=== PATIENT | female | born 1990 | race Caucasian/White ===

== ENCOUNTER → 2022-09-27 | Outpatient (CLI) | payer OTHER ==
[2022-09-28 01:16] LABS: Basophils # (A) 0.07 X 10*3/uL (0.00-0.10); Basophils % (A) 0.6 %; Eosinophils # (A) 0.23 X 10*3/uL (0.04-0.35); Eosinophils % (A) 2.1 %; HCT 40.2 % (37.2-46.3); HGB 13.1 g/dL (12.0-15.0); Immature Grans, Automated 0.5 %; MCH 30.3 pg (27.0-32.0); MCHC 32.6 g/dL (32.0-37.0); MCV 92.8 fL (80.0-97.0); Monocytes # (A) 0.85 X 10*3/uL (0.20-1.00); Monocytes % (A) 7.7 %; NRBC Per 100 WBC 0 /100 WBCS (0.0-0.0); Neutrophils # (A) 7.61 X 10*3/uL (1.80-7.70); Neutrophils % (A) 69.1 %; Platelet Count 246 X 10*3/uL (140-440); RBC 4.33 X 10*6/uL (4.10-5.20); RDW 12.4 % (11.5-14.5); WBC 11.01 X 10*3/uL (4.50-10.00)
[2022-09-28 03:47] LABS: Hepatitis B Surface Antigen Nonreactive (Nonreactive)
[2022-09-28 04:08] LABS: ALT 17 U/L (8-44); AST 15 U/L (13-35); African American GFR (CKD) 140.9 (60.0-200.0); Albumin 4.4 g/dL (3.8-4.9); Albumin/Globulin Ratio 1.64 (1.60-3.17); Alkaline Phosphatase 76 U/L (41-126); BUN/Creat Ratio 11.05 Ratio (12.00-20.00); Blood Urea Nitrogen 6.6 mg/dL (9.0-27.0); Calcium 9.7 mg/dL (8.7-10.3); Carbon Dioxide 21.1 mmol/L (20.0-27.5); Chloride 104 mmol/L (96-109); Globulin 2.7 g/dL (1.6-3.3); Glucose 81 mg/dL (70-110); Non-African American GFR(CKD) 121.6 (60.0-200.0); Potassium 4.2 mmol/L (3.5-5.5); Sodium 138 mmol/L (135-145); Total Bilirubin <0.15 mg/dL (0.30-1.20)
[2022-09-28 04:48] LABS: HIV 2 AB Non-Reactive (Non-Reactive); HIV AB P24 Non-Reactive (Non-Reactive); HIV P24 AG Non-Reactive (Non-Reactive)
== END | disposition home or self-care (01) ==
LOC: LABWHC1 11:58
PROVIDERS: ATTEND Family Medicine
DX: Z34.90 Encounter for supervision of normal pregnancy, unspecified, unspecified trimester (principal); Z3A.00 Weeks of gestation of pregnancy not specified; Z86.32 Personal history of gestational diabetes
CPT/HCPCS: 36415; 80053; 82306; 83036; 85025; 86762; 86900; 86901; 87340; 87390; 87491; 87591

== ENCOUNTER → 2022-10-10 | Outpatient (CLI) | payer OTHER ==
--- NOTE | 2022-10-11 09:45 | US ---
EXAMINATION TYPE: Transabdominal DATE OF EXAM: 10/10/2022 3:38 PM COMPARISON: NONE CLINICAL INDICATION: Female, 32 years old with history of Z36.89 ENCOUNTER FOR OTHER SPECIFIED SCR; EXAM PERFORMED: Transabdominal (TA) EXAM MEASUREMENTS: GESTATIONAL AGE / DATING Physician Established: (8 weeks/1 days) EDC: 05/21/2023 Dates by LMP: Unknown Dates by First Scan: No previous this is first scan Dates by Current Scan for: ( 7 weeks/5 days) EDC: 05/24/2023 MATERNAL ANATOMY Uterus: 15.0 x 7.4 x 8.3cm, fundal hypoechoic area measuring 5.3 x 3.7 x 4.4cm - possible fibroid Right Ovary: 3.5 x 1.9 x 2.9cm Left Ovary: 2.6 x 1.1 x 2.7cm Post CDS / Adnexa: wnl Presence of free fluid: no Presence of corpus luteal cyst: not seen Presence of subchorionic bleed: 1.2 x 1.3 x 2.5cm hypoechoic area superior to gestational sac GESTATION / SURVEY CRL: 1.4cm (7 weeks/5 days) Yolk Sac (normal less than 6mm): 5.0mm Heart Rate: 169 bpm Rhythm: Normal IUP: Viable IUP Urinary bladder is sonolucent. IMPRESSION: 1. Single intrauterine gestation estimated at 7 weeks 5 days gestation based on crown-rump length. Cardiac activity measures 169 bpm. 2. Anterior fundal uterine fibroid measuring approximately 4 x 4 by 5 cm. MTDD
== END | disposition home or self-care (01) ==
LOC: RADUSWWP 15:14
PROVIDERS: ATTEND Obstetrics & Gynecology
DX: O34.11 Maternal care for benign tumor of corpus uteri, first trimester (principal); Z36.89 Encounter for other specified antenatal screening; Z3A.08 8 weeks gestation of pregnancy
CPT/HCPCS: 76801

== ENCOUNTER 2022-10-14 12:18 | Emergency (ER) | payer OTHER ==
[2022-10-14 12:22] VITALS: RESP 18
[2022-10-14 13:06] LABS: Appearance,Urine Cloudy (Clear); Bacteria,Urine Occasional /hpf; Bilirubin,Urine Negative (Negative); Blood,Urine Trace (Negative); Color,Urine Yellow; Glucose,Urine (UA) Negative (Negative); Ketones,Urine 1+ (Negative); Leukocyte Esterase,Urine Negative (Negative); Mucus,Urine Occasional /hpf; Nitrite,Urine Negative (Negative); Protein,Urine Trace (Negative); RBC,Urine 22 /hpf (0-5); Specific Gravity,Urine 1.022 (1.001-1.035); Squamous Epithelial Cell,Urine 8 /hpf (0-4); Urobilinogen,Urine <2.0 mg/dL (<2.0); WBC,Urine 2 /hpf (0-5)
--- NOTE | 2022-10-14 13:06 | ED ---
Abdominal Pain HPI - General Chief Complaint: Abdominal Pain Stated Complaint: abd pain - 8 weeks Time Seen by Provider: 10/14/22 12:24 Source: patient, RN notes reviewed Mode of arrival: ambulatory Limitations: no limitations - History of Present Illness Initial Comments: This is a 32-year-old female presents emergency Department with chief complaint of abdominal, low back pain. Patient states she is A0 currently [address] Gurrola. Patient states she was having low back achiness and had some mild left lower abdominal pain, pelvic pain. Patient here for checkup she is concerned that she has a known subchronic hematoma. Patient denies fever chills no vaginal bleeding patient and no other associated symptoms or dysuria - Related Data Previous Rx's Medication Instructions Recorded Acetaminophen-Codeine 300-30mg 1 each PO Q6H PRN #21 tablet 10/13/13 [Tylenol #3] Dicyclomine [Bentyl] 20 mg PO QID #14 tablet 10/13/13 Metoclopramide HCl [Reglan] 10 mg PO Q6HR PRN #14 tablet 10/13/13 Allergies Allergy/AdvReac Type Severity Reaction Status Date / Time No Known Allergies Allergy Verified 10/14/22 12:22 Review of Systems ROS Statement: Those systems with pertinent positive or pertinent negative responses have been documented in the HPI. ROS Other: All systems not noted in ROS Statement are negative. Past Medical History Past Medical History: No Reported History History of Any Multi-Drug Resistant Organisms: None Reported Past Surgical History: Ear Surgery Past Psychological History: No Psychological Hx Reported Smoking Status: Never smoker Past Alcohol Use History: None Reported Past Drug Use History: None Reported General Exam Limitations: no limitations General appearance: alert, in no apparent distress Head exam: Present: atraumatic, normocephalic, normal inspection Eye exam: Present: normal appearance, PERRL, EOMI. Absent: scleral icterus, conjunctival injection, periorbital swelling Neck exam: Present: normal inspection, full ROM. Absent: tenderness, meningismus, lymphadenopathy Respiratory exam: Present: normal lung sounds bilaterally. Absent: respiratory distress, wheezes, rales, rhonchi, stridor Cardiovascular Exam: Present: regular rate, normal rhythm, normal heart sounds. Absent: systolic murmur, diastolic murmur, rubs, gallop, clicks GI/Abdominal exam: Present: soft, normal bowel sounds. Absent: distended, tenderness, guarding, rebound, rigid Back exam: Absent: CVA tenderness (R), CVA tenderness (L) Neurological exam: Present: alert Skin exam: Present: warm, dry, intact, normal color. Absent: rash Course Vital Signs 10/14/22 10/14/22 12:19 14:14 Temperature 98.2 F 98.4 F Pulse Rate 91 81 Respiratory 18 18 Rate Blood Pressure 139/81 124/73 O2 Sat by Pulse 99 99 Oximetry Medical Decision Making - Medical Decision Making Was pt. sent in by a medical professional or institution (, EMERITA, GAS REGULATOR REPAIRER, urgent care, hospital, or longterm...) When possible be specific @ -No Did you speak to anyone other than the patient for history (EMS, parent, family, police, friend...)? What history was obtained from this source @ -No Did you review nursing and triage notes (agree or disagree)? Why? @ -I reviewed and agree with nursing and triage notes Were old charts reviewed (outside hosp., previous admission, EMS record, old EKG, old radiological studies, urgent care reports/EKG's, longterm records)? Report findings @ -No old charts were reviewed Differential Diagnosis (chest pain, altered mental status, abdominal pain women, abdominal pain men, vaginal bleeding, weakness, fever, dyspnea, syncope, headache, dizziness, GI bleed, back pain, seizure, CVA, palpatations, mental health, musculoskeletal)? @ -Miscarriage, abdominal pain and , TIA, EKG interpreted by me (3pts min.). @ -None] X-rays interpreted by me (1pt min.). @ -None done CT interpreted by me (1pt min.). @ -None done U/S interpreted by me (1pt. min.). @ -Ultrasound shows stable subchorionic hemorrhage, single viable IUP, uterine fibroid noted What testing was considered but not performed or refused? (CT, X-rays, U/S, labs)? Why? @ -None What meds were considered but not given or refused? Why? @ -None Did you discuss the management of the patient with other professionals (professionals i.e. EMERITA Sharma, GAS REGULATOR REPAIRER, lab, RT, psych nurse, protective services social worker, insurance law specialist, teacher, morale officer, case packer and sealer)? Give summary @ -No Was smoking cessation discussed for >3mins.? @ -No Was critical care preformed (if so, how long)? @ -No Were there social determinants of health that impacted care today? How? (Homelessness, low income, unemployed, alcoholism, drug addiction, transportation, low edu. Level, literacy, decrease access to med. care, prison, rehab)? @ -No Was there de-escalation of care discussed even if they declined (Discuss DNR or withdrawal of care, Hospice)? DNR status @ -No What co-morbidities impacted this encounter? (DM, HTN, Smoking, COPD, CAD, Cancer, CVA, ARF, Chemo, Hep., AIDS, mental health diagnosis, sleep apnea, morbid obesity)? @ -None Was patient admitted / discharged? Hospital course, mention meds given and route, prescriptions, significant lab abnormalities, going to OR and other pertinent info. @ -Discharged patient has single viable IUP with no comp eating fractures on ultrasound. Patient did have noted hematuria and asymptomatic bacteriuria in she states she just finished a course of antibiotics and yeast infection treatment from [facility] she states she will recheck with [facility] as far as treatment Undiagnosed new problem with uncertain prognosis? @ -No Drug Therapy requiring intensive monitoring for toxicity (Heparin, Nitro, Insulin, Cardizem)? @ -No Were any procedures done? @ -No Diagnosis/symptom? @ -Abdominal pain in Acute, or Chronic, or Acute on Chronic? @ -Acute Uncomplicated (without systemic symptoms) or Complicated (systemic symptoms)? @ -Uncomplicated Side effects of treatment? @ -No Exacerbation, Progression, or Severe Exacerbation? @ -No Poses a threat to life or bodily function? How? (Chest pain, [place], [place], pneumonia, PE, COPD, DKA, ARF, appy, cholecystitis, CVA, Diverticulitis, Homicidal, Suicidal, threat to staff... and all critical care pts) @ -No - Lab Data Lab Results 10/14/22 Range/Units 12:35 Urine Color Yellow Urine Appearance Cloudy H (Clear) Urine pH 7.0 (5.0-8.0) Ur Specific [place] 1.022 (1.001-1.035) Urine Protein Trace H (Negative) Urine Glucose (UA) Negative (Negative) Urine Ketones 1+ H (Negative) Urine Blood Trace H (Negative) Urine Nitrite Negative (Negative) Urine Bilirubin Negative (Negative) Urine Urobilinogen <2.0 (<2.0) mg/dL Ur Leukocyte Esterase Negative (Negative) Urine RBC 22 H (0-5) /hpf Urine WBC 2 (0-5) /hpf Ur Squamous Epith Cells 8 H (0-4) /hpf Urine Bacteria Occasional H (None) /hpf Urine Mucus Occasional H (None) /hpf Disposition Clinical Impression: Abdominal pain in Disposition: HOME SELF-CARE Condition: Stable Instructions (If sedation given, give patient instructions): Abdominal Pain in (ED) Additional Instructions: Please return to the Emergency Department if symptoms worsen or any other concerns. Is patient prescribed a controlled substance at d/c from ED?: No Referrals: Vijay Barker MD [Primary Care Provider] - 1-2 days Time of Disposition: 13:54
--- NOTE | 2022-10-14 13:35 | US ---
EXAMINATION TYPE: Transabdominal DATE OF EXAM: 10/14/2022 1:23 PM COMPARISON: 10/20/2022 CLINICAL INDICATION: Female, 32 years old with history of pain; back pain, pelvic pain EXAM PERFORMED: Transabdominal (TA) EXAM MEASUREMENTS: GESTATIONAL AGE / DATING Physician Established: Not yet established Dates by LMP: (8 weeks/3 days) EDC: 05/23/23 Dates by First Scan: (8 weeks/2 days) EDC: 05/24/23 Dates by Current Scan for: (8 weeks/5 days) EDC: 05/21/23 MATERNAL ANATOMY Uterus: 14.0 x 6.5 x 9.8cm. fundal hypoechoic area = 4.6 x 4.5 x 4.2cm as on prior exam Right Ovary: 3.4 x 3.5 x 2.4cm Left Ovary: 2.7 x 1.5 x 1.6cm Post CDS / Adnexa: wnl Presence of free fluid: no Presence of corpus luteal cyst: not seen Presence of subchorionic bleed: yes, hypoechoic area = 1.8 x 1.5 x 2.2cm adjacent to gestational sac as on prior exam GESTATION / SURVEY CRL: 2.0cm (8 weeks/5 days) Yolk Sac (normal less than 6mm): 0.4cm Heart Rate: 165 bpm Rhythm: Normal IUP: Viable IUP Date of LMP: 08/16/22 Beta HcG (if available): Not available at this time IMPRESSION: 1. Single intrauterine gestation estimated at 8 weeks 5 days gestation based on crown-rump length. Ca rdiac activity measures 165 bpm. 2. Subchorionic hemorrhage. This is stable from comparison. 3. 4 cm anterior fundal fibroid.
[2022-10-14 14:15] VITALS: BP 124/73; PULSE 81; TEMP 98.4
== END 2022-10-14 14:15 | disposition home or self-care (01) ==
LOC: EC 12:18
DX: O26.891 Other specified pregnancy related conditions, first trimester (principal); R10.9 Unspecified abdominal pain; O20.8 Other hemorrhage in early pregnancy; Z3A.08 8 weeks gestation of pregnancy
CPT/HCPCS: 76801; 81001; 99284

== ENCOUNTER 2022-12-31 16:47 | Outpatient (CLI) | payer OTHER ==
[2022-12-31 18:16] LABS: Appearance,Urine Clear (Clear); Color,Urine Yellow; Glucose,Urine (UA) Negative (Negative); PH, Urine 6.5 (5.0-8.0); Protein,Urine 1+ (Negative); Specific Gravity,Urine >1.030 (1.001-1.035)
[2022-12-31 18:17] LABS: Bacteria,Urine Few /hpf; Bilirubin,Urine Negative (Negative); Blood,Urine Large (Negative); Ketones,Urine 3+ (Negative); Leukocyte Esterase,Urine Negative (Negative); Nitrite,Urine Negative (Negative); RBC,Urine 20 /hpf (0-5); Squamous Epithelial Cell,Urine 10 /hpf (0-4); Urobilinogen,Urine <2.0 mg/dL (<2.0); WBC,Urine 5 /hpf (0-5)
[2022-12-31 18:55] VITALS: BP 129/76; PULSE 105; RESP 16; TEMP 97.3
--- NOTE | 2023-01-01 07:13 | P.MSEPDOC ---
Presenting Problems - Arrival Data Date of Arrival on Unit: 12/31/22 Time of Arrival on Unit: 16:47 Mode of Transport: EMS - Complaint OB-Reason for Admission/Chief Complaint: Other Comment: Left sided abdominal pain, confirmed kidney stone 2 days ago Medical History - Information : 2 Para: 1 Term: 1 : 0 Abortions: Spontaneous or Elective: 0 Number of Living Children: 1 - Gestational Age Gestational Age by CARLOS (wks/days): 19 Weeks and 6 Days Review of Systems - Review of Systems Constitutional: No problems Breast: No problems ENT: No problems Cardiovascular: No problems Respiratory: No problems Gastrointestinal: No problems Genitourinary: No problems Musculoskeletal: No problems Neurological: No problems Skin: No problems Vital Signs - Temperature Temperature: 97.3 F Temperature Source: Temporal Artery Scan - Pulse Pulse Oximetery Pulse Rate: 105 Pulse Assessment Method: Pulse Oximetry - Respirations Respiratory Rate: 16 Oxygen Delivery Method: Room Air O2 Sat by Pulse Oximetry: 96 - Blood Pressure Right Arm Blood Pressure: 129/76 Blood Pressure Mean: 93 Blood Pressure Source: Automatic Cuff Medical Screen Scoring - Assessment - Baby A Baseline FHR: 145 Physician Notification - Physician Notified Physician Notified Date: 12/31/22 Physician Notified Time: 17:11 Physician: Nicol Rodney New Order Received: Yes - Notification Comment Comment: Dr. Rodney called in [facility] [place]. Report given on maternal complaints of abdominal. pain and that she was seen 2 days ago at [facility] and diagnosed with a kidney stone. Pt. is talking easily with RN and does not appear to be very uncomfortable, pt has norco at. home and has not been taking it. FHR in the 140s, abdomen soft to palpation and. nontender. Orders to send a UA and can discharge pt home with instructions to increase. fluids & take norco/tylenol PRN Maternal Triage Index - Maternal Triage Index Presenting for scheduled procedure w/no complaint: No - Stat/Priority 1 Stat Priority 1: No - Urgent/Priority 2 Urgent Priority 2: Yes Provider Notified: Nicol Rodney Provider Notified Time: 17:11 Criteria Met for Priority 2: 19 6/7wks, left abdominal pain rating it 8/10 Disposition - Disposition OB Disposition: Discharge to home Discharge Date: 07/30/23 Discharge Time: 18:30 I agree with the RN Medical Screening Exam: Yes Case reviewed; plan agreed upon as documented in EMR&OBIX.: Yes Diagnosis: CALCULUS OF KIDNEY
== END 2022-12-31 18:30 | disposition home or self-care (01) ==
LOC: FBPOP 16:47
PROVIDERS: ATTEND Obstetrics & Gynecology
DX: O26.832 Pregnancy related renal disease, second trimester (principal); N20.0 Calculus of kidney; Z3A.19 19 weeks gestation of pregnancy
CPT/HCPCS: 81001; G0463; 99213

== ENCOUNTER → 2023-01-01 | Outpatient (CLI) | payer OTHER ==
--- NOTE | 2023-01-01 13:15 | US ---
EXAMINATION TYPE: US kidneys/renal and bladder DATE OF EXAM: 01/01/2023 COMPARISON: NONE CLINICAL INDICATION: Female, 32 years old with history of N20.9 URINARY CALCULI; Hx of kidney stones EXAM MEASUREMENTS: Right Kidney: 10.6 x 4.3 x 4.2 cm Left Kidney: 11.6 x 6.3 x 5.4 cm Right Kidney: No hydronephrosis or masses seen Left Kidney: Echogenic area seen lower pole, 6 mm hyperechoic focus within the left kidney. Bladder: anechoic Bilateral Jets seen: No IMPRESSION: 1. No evidence for hydronephrosis. 2. Left renal nonobstructing calculus measuring up to 6 mm.
== END | disposition home or self-care (01) ==
LOC: RADUSWWP 12:02
PROVIDERS: ATTEND Family Medicine
DX: N20.9 Urinary calculus, unspecified (principal)
CPT/HCPCS: 76770

== ENCOUNTER 2023-03-13 21:49 | Outpatient (CLI) | payer OTHER ==
[2023-03-13 22:49] VITALS: BP 129/76; PULSE 103; RESP 18; TEMP 97.9
--- NOTE | 2023-03-14 06:48 | P.MSEPDOC ---
Presenting Problems - Arrival Data Date of Arrival on Unit: 03/13/23 Time of Arrival on Unit: 21:49 Mode of Transport: Ambulatory - Complaint OB-Reason for Admission/Chief Complaint: Rule Out SROM Comment: Pt 30 weeks and 1 day. Pt presents to triage with c/o gush of fluid x1 at 1500 today. Not leaking fluid since. Pt admits to intercourse in last 24 hours. Pt denies pain, no cx per toco or palpation. Cervical exam closed/thick/high. Medical History - Information : 2 Para: 1 Term: 1 : 0 Abortions: Spontaneous or Elective: 0 Number of Living Children: 1 - Gestational Age Gestational Age by CARLOS (wks/days): 30 Weeks and 1 Days Review of Systems - Review of Systems Constitutional: No problems Breast: No problems ENT: No problems Cardiovascular: No problems Respiratory: No problems Gastrointestinal: No problems Genitourinary: No problems Musculoskeletal: No problems Neurological: No problems Skin: No problems Vital Signs - Temperature Temperature: 97.9 F Temperature Source: Oral - Pulse Pulse Oximetery Pulse Rate: 103 Pulse Assessment Method: Pulse Oximetry - Respirations Respiratory Rate: 18 Oxygen Delivery Method: Room Air O2 Sat by Pulse Oximetry: 97 - Blood Pressure Right Arm Blood Pressure: 129/76 Blood Pressure Mean: 93 Blood Pressure Source: Automatic Cuff Medical Screen Scoring - Assessment - Baby A Baseline FHR: 155 Heart Rate - NICHD Category: Category I (Normal) NST: Reactive Physician Notification - Physician Notified Physician Notified Date: 03/13/23 Physician Notified Time: 22:19 Physician: Tate Mendez - Notification Comment Comment: Spoke with Dr. Mendez, Pt 30 weeks and 1 day. Pt presents to triage with c/o gush of fluid x1 at 1500 today. Not leaking fluid since. Pt admits to intercourse in last 24 hours. Pt denies pain, no cx per toco or palpation. Cervical exam closed/thick/high. Orders recieved to d/c home Maternal Triage Index - Maternal Triage Index Presenting for scheduled procedure w/no complaint: No - Stat/Priority 1 Stat Priority 1: No - Urgent/Priority 2 Urgent Priority 2: No - Prompt/Priority 3 Prompt Priority 3: Yes Criteria Met for Priority 3: Spoke with Dr. Mendez, Pt 30 weeks and 1 day. Pt presents to triage with c/o gush of fluid x1 at 1500 today. Not leaking fluid since. Pt admits to intercourse in last 24 hours. Pt denies pain, no cx per toco or palpation. Cervical exam closed/thick/high. Orders recieved to d/c home Disposition - Disposition OB Disposition: Triage, Discharge to home Discharge Date: 03/13/23 Discharge Time: 22:33 I agree with the RN Medical Screening Exam: Yes Case reviewed; plan agreed upon as documented in EMR&OBIX.: Yes Diagnosis: FALSE LABOR BEFORE 37 COMPLETED WEEKS OF GEST, THIRD TRI
== END 2023-03-13 22:33 | disposition home or self-care (01) ==
LOC: FBPOP 21:49
PROVIDERS: ATTEND Obstetrics & Gynecology
DX: O47.03 False labor before 37 completed weeks of gestation, third trimester (principal); Z3A.30 30 weeks gestation of pregnancy
CPT/HCPCS: 59025; G0463; 99213

== ENCOUNTER 2023-05-05 21:48 | Observation (INO) | payer OTHER ==
[2023-05-05 23:11] LABS: Amorphous Sediment,Urine Moderate /hpf; Bacteria,Urine Occasional /hpf; Granular Casts,Urine 7 /lpf (0); Hyaline Casts,Urine 14 /lpf (0-2); Mucus,Urine Rare /hpf; RBC,Urine 8 /hpf (0-5); Squamous Epithelial Cell,Urine 56 /hpf (0-4); WBC,Urine 30 /hpf (0-5)
[2023-05-05 23:12] LABS: Color,Urine Colorless
[2023-05-05 23:13] LABS: Appearance,Urine Cloudy (Clear)
[2023-05-05 23:14] LABS: Bilirubin,Urine Negative (Negative); Blood,Urine Small (Negative); Glucose,Urine (UA) Negative (Negative); Ketones,Urine Negative (Negative); Leukocyte Esterase,Urine Large (Negative); Nitrite,Urine Negative (Negative); Protein,Urine Trace (Negative); Specific Gravity,Urine 1.015 (1.001-1.035); Urobilinogen,Urine 0.2 mg/dL (<2.0)
[2023-05-05] MEDS ORDERED: ACETAMINOPHEN TAB 500 MG TAB PO PRN (23:26)
[2023-05-05] MEDS ORDERED: ONDANSETRON 4 MG/2 ML VIAL IVP PRN (23:27)
[2023-05-05] MEDS: NALBUPHINE 10 MG/ML (10 ML MDV) IV PRN (23:57)
[2023-05-06 01:01] VITALS: RESP 16
[2023-05-06] MEDS: NALBUPHINE 10 MG/ML (10 ML MDV) IV PRN (04:14)
[2023-05-06 08:18] LABS: Glucose,Whole Blood 87 mg/dL (70-110)
[2023-05-06] MEDS: LACTATED RINGERS 1,000 ML IV SCH ×3 (08:52→13:05)
[2023-05-06 09:03] VITALS: BP 128/77; PULSE 82; TEMP 97
--- NOTE | 2023-05-06 11:50 | P.HPOB ---
History of Present Illness H&P Date: 05/06/23 Chief Complaint: Severe left flank and left lower quadrant abdominal pain This is a 32-year-old female 2 para 1 with an estimated date of confinement of 05/21/2023, estimated gestational age of 37-5/7 weeks, who presented with complaints of severe left flank and left lower quadrant abdominal pain. At first she thought it was that she hadn't had a bowel movement in a couple days and therefore took a fleets enema. She did not get any result from this and her pain persisted. She did have a history of a kidney stone at 19 weeks with similar symptoms of pain. She never did pass that stone. Urinalysis appeared contaminated. She is admitted for possible kidney stone and IV hydration and pain control. She does see Dr. Gurrola for care and is gestational diabetic on insulin at nighttime. Sugars overall had been fairly well-controlled. She also is complaining of upper respiratory nasal congestion that is starting to improve now. She has been taking Benadryl for this. Obstetrical history: . History of 1 vaginal delivery at term. Review of Systems Constitutional: Denies chills, Denies fever Ears, nose, mouth and throat: Reports nasal congestion, Reports nasal discharge, Reports sinus pressure Cardiovascular: Denies chest pain, Denies shortness of breath Respiratory: Reports congestion, Reports cough with sputum (Clear sputum) Gastrointestinal: Reports abdominal pain (Left lower quadrant), Reports constipation, Denies nausea, Denies vomiting Genitourinary: Reports pelvic pain (Left lower quadrant), Reports Musculoskeletal: Reports low back pain (Left) Integumentary: Denies pruritus, Denies rash Neurological: Denies numbness, Denies weakness Psychiatric: Denies anxiety, Denies depression Past Medical History Additional Past Medical History / Comment(s): Gestational diabetes on insulin, history of migraines History of Any Multi-Drug Resistant Organisms: None Reported Past Surgical History: Ear Surgery Past Psychological History: No Psychological Hx Reported Smoking Status: Never smoker Past Alcohol Use History: None Reported Past Drug Use History: None Reported - Past Family History Father Family Medical History: No Reported History Medications and Allergies Home Medications Medication Instructions Recorded Confirmed Type Vit No.179/Iron/Folic 1 each PO DAILY 12/31/22 05/05/23 History [ Tablet] Insulin Aspart [NovoLOG Flexpen] 7 - 9 units SQ DAILY 05/05/23 05/05/23 History Allergies Allergy/AdvReac Type Severity Reaction Status Date / Time No Known Allergies Allergy Verified 03/13/23 21:57 Exam Osteopathic Statement: *. No significant issues noted on an osteopathic structural exam other than those noted in the History and Physical/Consult. Vital Signs Temp Pulse Resp BP Pulse Ox 05/06/23 08:00 97.0 F L 82 16 128/77 99 05/06/23 04:57 96.4 F L 80 16 123/81 99 05/05/23 23:48 96.9 F L 102 H 16 131/83 97 05/05/23 22:13 96.9 F L 102 H 16 131/83 97 Intake and Output 05/05/23 05/06/23 05/06/23 22:59 06:59 14:59 Other: # Voids 2 Weight 79.379 kg 79.379 kg Gen.: Well-developed well-nourished gravid female in no acute distress currently HEENT: Within normal limits Heart: Regular rate and rhythm Lungs: Clear to auscultation bilaterally Abdomen: Soft, nontender, heart tones: Category 1 Contractions: Irregular Extremities: Negative Homans Results Abnormal Lab Results - Last 24 Hours (Table) 05/05/23 Range/Units 22:05 Urine Appearance Cloudy H (Clear) Urine Protein Trace H (Negative) Urine Blood Small H (Negative) Ur Leukocyte Esterase Large H (Negative) Urine RBC 8 H (0-5) /hpf Urine WBC 30 H (0-5) /hpf Ur Squamous Epith Cells 56 H (0-4) /hpf Amorphous Sediment Moderate H (None) /hpf Urine Bacteria Occasional H (None) /hpf Hyaline Casts 14 H (0-2) /lpf Urine Mucus Rare H (None) /hpf Assessment and Plan (1) 37 weeks gestation of Current Visit: Yes Status: Acute Code(s): Z3A.37 - 37 WEEKS GESTATION OF SNOMED Code(s): 33365750 (2) Left nephrolithiasis Narrative/Plan: Possible Current Visit: Yes Status: Acute Code(s): N20.0 - CALCULUS OF KIDNEY SNOMED Code(s): 47408901 Plan: Admission for IV hydration, strain urine, pain control.
--- NOTE | 2023-05-06 11:53 | P.DS ---
Providers Date of admission: 05/05/23 23:27 Expected date of discharge: 05/06/23 Attending physician: Vanda Gurrola Primary care physician: Stated None - Discharge Diagnosis(es) (1) 37 weeks gestation of Current Visit: Yes Status: Acute (2) Left nephrolithiasis Current Visit: Yes Status: Acute Hospital Course: This is a 32-year-old female 2 para 1 at 37-6/7 weeks who presented last night with complaints of severe left lower quadrant and left flank pain along with history of constipation. She also does have a history of a kidney stone diagnosed at 19 weeks that she never passed. She denied any nausea or vomiting. She received 2 doses of Nubain 4 hours apart and since that time has had no continued pain. She still has not had a bowel movement. She is feeling good movement and no regular contractions. Impression is intrauterine at 37-6/7 weeks, probable left nephrolithiasis, constipation. Plan is to discharge home today since pain is better controlled. He we'll continue to strain her urine at home. She will follow up with Dr. Gurrola and 2 days for her appointment. She will continue to take stool softeners. She is advised to return to the hospital if pain worsens or any new symptoms. Urine culture is pending at this time. Patient Condition at Discharge: Stable Plan - Discharge Summary New Discharge Prescriptions: No Action Vit No.179/Iron/Folic [ Tablet] 1 each PO DAILY Insulin Aspart [NovoLOG Flexpen] 7 - 9 units SQ DAILY Discharge Medication List Vit No.179/Iron/Folic [ Tablet] 1 each PO DAILY 12/31/22 [History] Insulin Aspart [NovoLOG Flexpen] 7 - 9 units SQ DAILY 05/05/23 [History] Follow up Appointment(s)/Referral(s): Vanda Gurrola DO [Doctor of Osteopathic Medicine] - 1-2 Days Activity/Diet/Wound Care/Special Instructions: Activity as tolerated. Diet as tolerated. Continue to strain urine. May take stool softeners for constipation. Discharge Disposition: HOME SELF-CARE
--- NOTE | 2023-05-06 11:54 | P.MSEPDOC ---
Presenting Problems - Arrival Data Date of Arrival on Unit: 05/05/23 Time of Arrival on Unit: 23:45 Mode of Transport: Wheelchair - Complaint OB-Reason for Admission/Chief Complaint: Pain Comment: Patient presents to triage with complaints of left lower back and left lower abodominal 8/10 constant pain Medical History - Information : 2 Para: 1 Term: 1 : 0 Abortions: Spontaneous or Elective: 0 Number of Living Children: 1 - Gestational Age Gestational Age by CARLOS (wks/days): 37 Weeks and 6 Days Review of Systems - Review of Systems Constitutional: No problems Breast: No problems ENT: No problems Cardiovascular: No problems Respiratory: No problems Gastrointestinal: No problems Genitourinary: No problems Musculoskeletal: No problems Neurological: No problems Skin: No problems Vital Signs - Temperature Temperature: 97.0 F Temperature Source: Temporal Artery Scan - Pulse Pulse Oximetery Pulse Rate: 82 Pulse Assessment Method: Pulse Oximetry - Respirations Respiratory Rate: 16 Oxygen Delivery Method: Room Air O2 Sat by Pulse Oximetry: 99 - Blood Pressure Right Arm Blood Pressure: 128/77 Blood Pressure Mean: 94 Blood Pressure Source: Automatic Cuff Physician Notification - Physician Notified Physician Notified Date: 05/05/23 Physician Notified Time: 23:19 Physician: Nicol Rodney New Order Received: Yes - Notification Comment Comment: orders to admit for OBV, IV fluids at 150/hr, nubaine 5mg q 4 hours PRN, zofran PRN, tylenol PRN, regular diet, and nst q shift. Maternal Triage Index - Maternal Triage Index Presenting for scheduled procedure w/no complaint: No - Stat/Priority 1 Stat Priority 1: Yes Provider Notified: Nicol Rodney Provider Notified Time: 22:33 Criteria Met for Priority 1: Patient admitted for observation Disposition - Disposition OB Disposition: Admit I agree with the RN Medical Screening Exam: Yes Case reviewed; plan agreed upon as documented in EMR&OBIX.: Yes Diagnosis: CALCULUS OF LOWER URINARY TRACT, UNSPECIFIED
== END 2023-05-06 12:20 | disposition home or self-care (01) ==
LOC: FBPOP 21:48 → 4FBP 23:27
PROVIDERS: ADMIT Obstetrics & Gynecology; ATTEND Obstetrics & Gynecology
DX: O26.833 Pregnancy related renal disease, third trimester (principal); N20.0 Calculus of kidney; O24.414 Gestational diabetes mellitus in pregnancy, insulin controlled; Z3A.37 37 weeks gestation of pregnancy; Z87.442 Personal history of urinary calculi; Z79.4 Long term (current) use of insulin
CPT/HCPCS: 59025; 96376; 96361; 96374; 81001; 87086; G0378 ×2; G0463; J2300 ×2; 99213

== ENCOUNTER 2023-05-17 15:45 | Inpatient (IN) | payer OTHER ==
[2023-05-17] MEDS ORDERED: NALBUPHINE 10 MG/ML (10 ML MDV) IV PRN (16:18)
[2023-05-17] MEDS ORDERED: DINOPROSTONE 10 MG INSERT.ER VAGINAL ONE (16:18)
[2023-05-17 17:21] LABS: Glucose,Whole Blood 104 mg/dL (70-110)
[2023-05-18] MEDS ORDERED: TERBUTALINE 1 MG/ML VIAL SQ PRN (05:21)
[2023-05-18] MEDS ORDERED: LIDOCAINE 0.5% (PF) 5 MG/ML (50 ML SDV) SQ PRN (05:21)
[2023-05-18] MEDS ORDERED: miSOPROStoL 200 MCG TAB PO PRN (05:21)
[2023-05-18] MEDS ORDERED: CARBOPROST TROMETHAMINE 250 MCG/ML 1 ML AMP IM PRN (05:21)
[2023-05-18] MEDS ORDERED: METHYLERGONOVINE 0.2 MG/ML 1 ML AMP IM PRN (05:21)
[2023-05-18] MEDS ORDERED: AMPICILLIN 2,000 MG in SODIUM CHLORIDE 0.9% 100 ML IVPB STA (05:21)
[2023-05-18] MEDS ORDERED: OXYTOCIN 10 UNIT/ML 1 ML VIAL IM PRN (05:21)
[2023-05-18] MEDS ORDERED: TRANEXAMIC 1,000 MG/100ML-NACL 1,000 MG in EMPTY BAG 1 BAG IV PRN (05:21)
[2023-05-18] MEDS ORDERED: OXYTOCIN 30 UNITS/500 ML NS 30 UNIT in SALINE 1 500ML.BAG IV SCH ×2 (05:30→12:00)
[2023-05-18] MEDS: LACTATED RINGERS 1,000 ML IV SCH ×2 (05:55→09:48)
[2023-05-18 07:26] LABS: Basophils % (A) 0 %; Eosinophils # (A) 0.1 k/uL (0-0.7); Eosinophils % (A) 1 %; HCT 37.8 % (34.0-46.0); HGB 13.1 gm/dL (11.4-16.0); Lymphocytes # (A) 1.6 k/uL (1.0-4.8); Lymphocytes % (A) 18 %; MCH 32.2 pg (25.0-35.0); MCHC 34.6 g/dL (31.0-37.0); Mean Platelet Volume 9.2; Monocytes # (A) 0.5 k/uL (0-1.0); Monocytes % (A) 5 %; Neutrophils # (A) 6.7 k/uL (1.3-7.7); Neutrophils % (A) 73 %; Platelet Count 198 k/uL (150-450); RBC 4.06 m/uL (3.80-5.40); RDW 13.9 % (11.5-15.5); WBC 9.2 k/uL (3.8-10.6)
[2023-05-18 08:04] LABS: Glucose,Whole Blood 87 mg/dL (70-110)
[2023-05-18 09:43] LABS: Glucose,Whole Blood 87 mg/dL (70-110)
[2023-05-18] MEDS: AMPICILLIN 1,000 MG in SODIUM CHLORIDE 0.9% 50 ML IVPB SCH ×2 (09:49→20:23)
[2023-05-18] MEDS ORDERED: SIMETHICONE 80 MG CHEWABLE PO PRN (11:56)
[2023-05-18] MEDS ORDERED: LANOLIN CREAM 5 GM TUBE TOPICAL PRN (11:56)
[2023-05-18] MEDS ORDERED: BENZOCAINE/MENTHOL SPRAY 1 GM/SPRAY AEROSOL TOPICAL PRN (11:56)
[2023-05-18] MEDS ORDERED: ZOLPIDEM 5 MG TAB PO PRN (11:56)
[2023-05-18] MEDS ORDERED: diphenhydrAMINE 50 MG CAP PO PRN (11:56)
[2023-05-18] MEDS ORDERED: diphenhydrAMINE 25 MG CAP PO PRN (11:56)
[2023-05-18] MEDS: IBUPROFEN 600 MG TAB PO PRN (15:16)
[2023-05-18] MEDS: SENNOSIDES-DOCUSATE SODIUM 1 EACH TAB PO SCH (20:32)
[2023-05-18] MEDS: ACETAMINOPHEN TAB 325 MG TAB PO PRN (20:32)
--- NOTE | 2023-05-19 03:11 | P.HPOB ---
History of Present Illness H&P Date: 05/18/23 Chief Complaint: induction of labor 32-year-old presents at 39 weeks and 5 days for induction of labor due to gestational diabetes A2. heart tones are category 1 and her cervix was closed. Review of Systems All systems: negative Constitutional: Denies chills, Denies fever Eyes: denies blurred vision, denies pain Ears, nose, mouth and throat: Denies headache, Denies sore throat Cardiovascular: Denies chest pain, Denies shortness of breath Respiratory: Denies cough Gastrointestinal: Denies abdominal pain, Denies diarrhea, Denies nausea, Denies vomiting Genitourinary: Denies dysuria, Denies hematuria Musculoskeletal: Denies myalgias Integumentary: Denies pruritus, Denies rash Neurological: Denies numbness, Denies weakness Psychiatric: Denies anxiety, Denies depression Endocrine: Denies fatigue, Denies weight change Past Medical History Past Medical History: No Reported History Additional Past Medical History / Comment(s): Gestational diabetes on insulin, history of migraines History of Any Multi-Drug Resistant Organisms: None Reported Past Surgical History: Adenoidectomy, Ear Surgery Past Anesthesia/Blood Transfusion Reactions: No Reported Reaction Past Psychological History: No Psychological Hx Reported Smoking Status: Never smoker Past Alcohol Use History: None Reported Past Drug Use History: None Reported - Past Family History Father Family Medical History: No Reported History Mother Family Medical History: Asthma, Thyroid Disorder Medications and Allergies Home Medications Medication Instructions Recorded Confirmed Type Vit No.179/Iron/Folic 1 each PO DAILY 12/31/22 05/17/23 History [ Tablet] Insulin Aspart [NovoLOG Flexpen] 7 - 9 units SQ DAILY 05/05/23 05/17/23 History Allergies Allergy/AdvReac Type Severity Reaction Status Date / Time No Known Allergies Allergy Verified 03/13/23 21:57 Exam Osteopathic Statement: *. No significant issues noted on an osteopathic structural exam other than those noted in the History and Physical/Consult. Vital Signs Temp Pulse Resp BP Pulse Ox 05/18/23 23:57 98.1 F 88 16 120/71 94 L 05/18/23 20:00 98.6 F 81 16 130/89 97 05/18/23 15:34 98.1 F 73 16 112/70 05/18/23 13:35 98.3 F 98 16 120/68 05/18/23 12:55 95 16 118/72 05/18/23 12:20 99 16 126/65 05/18/23 12:00 95 16 140/91 05/18/23 11:45 102 H 16 137/84 05/18/23 11:30 89 16 135/80 05/18/23 11:15 112 H 16 130/88 Intake and Output 05/18/23 05/18/23 05/19/23 14:59 22:59 06:59 Output Total 276 Balance -276 Output: Output, Quantitative 276 Blood Loss Other: # Voids 0 2 Heart: Regular rate and rhythm Lungs: Clear to auscultation bilaterally Abdomen: Soft, nontender Extremities: Negative Homans sign Results Result Diagrams: 05/18/23 06:37 Assessment and Plan (1) 39 weeks gestation of Current Visit: Yes Status: Acute Code(s): Z3A.39 - 39 WEEKS GESTATION OF SNOMED Code(s): 86124731 (2) Gestational diabetes mellitus, class A2 Current Visit: Yes Status: Acute Code(s): O24.419 - GESTATIONAL DIABETES MELLITUS IN , UNSP CONTROL SNOMED Code(s): 15166322 Plan: 1. Cervidil on 05/17/2023 and then amniotomy and Pitocin the morning to induce labor 2. Anticipate normal vaginal delivery
--- NOTE | 2023-05-19 03:13 | P.PROBDLV ---
Vaginal Delivery Note - . Vaginal Delivery Note: 32-year-old presents at 39 weeks and 5 days for induction of labor due to gestational diabetes A2. heart tones are category 1 and her cervix was closed. Cervidil was placed in the morning her cervix was 2 cm dilated, 60% effaced, -2 station. Pitocin was started. Amniotomy performed at 7:45 AM, clear fluid noted. She got an epidural when she was uncomfortable. Her cervix was completely dilated at 10:50 AM. She pushed, delivered a viable male over intact perineum under epidural anesthesia at 11:07 AM. Head delivered OA, nuchal cord 1 easily reduced, anterior shoulder delivered gentle downward guidance followed by posterior shoulder and rest of body. Nose and mouth bulb suctioned, cord clamped and cut, infant placed on mother's abdomen. Apgars 9, 9, weight 6 pounds 5.4 ounces. Placenta delivered spontaneously, intact with three-vessel cord at 11:10 AM. Vagina, cervix, perineum inspected. First- degree midline laceration was repaired with 3-0 Vicryl. Estimated blood loss 220 mL. Mother and baby in stable condition.
[2023-05-19 06:19] LABS: Basophils % (A) 0 %; Eosinophils # (A) 0.2 k/uL (0-0.7); Eosinophils % (A) 2 %; HCT 33.1 % (34.0-46.0); HGB 11.4 gm/dL (11.4-16.0); Lymphocytes # (A) 2.1 k/uL (1.0-4.8); Lymphocytes % (A) 20 %; MCH 32.1 pg (25.0-35.0); MCHC 34.4 g/dL (31.0-37.0); MCV 93.3 fL (80.0-100.0); Mean Platelet Volume 9.7; Monocytes # (A) 0.6 k/uL (0-1.0); Monocytes % (A) 6 %; Neutrophils # (A) 6.9 k/uL (1.3-7.7); Neutrophils % (A) 68 %; Platelet Count 187 k/uL (150-450); RBC 3.55 m/uL (3.80-5.40); RDW 13.8 % (11.5-15.5); WBC 10.1 k/uL (3.8-10.6)
[2023-05-19] MEDS: LACTATED RINGERS 1,000 ML IV SCH (06:42)
[2023-05-19] MEDS: SENNOSIDES-DOCUSATE SODIUM 1 EACH TAB PO SCH ×2 (08:31→19:57)
[2023-05-19] MEDS: IBUPROFEN 600 MG TAB PO PRN ×3 (08:31→23:41)
--- NOTE | 2023-05-19 13:05 | P.PNOBGVD ---
Subjective - Subjective Principal diagnosis: Post normal vaginal delivery day 1 Interval history: Seen and examined. Denies nausea, vomiting, chest pain, shortness of breath or calf pain. Patient reports: Reports appetite normal, Reports voiding normally, Reports pain well controlled, Reports ambulating normally [place]: doing well Objective - Latest Vital Signs Latest vital signs: Vital Signs Temp Pulse Resp BP Pulse Ox 05/19/23 08:25 98.1 F 78 16 122/68 05/18/23 23:57 98.1 F 88 16 120/71 94 L 05/18/23 20:00 98.6 F 81 16 130/89 97 05/18/23 15:34 98.1 F 73 16 112/70 05/18/23 13:35 98.3 F 98 16 120/68 Intake and Output 05/18/23 05/19/23 05/19/23 22:59 06:59 14:59 Other: # Voids 0 2 1 - Exam Lungs: bilateral: normal Chest: Normal S1, Normal S2 Extremities: Present: normal Abdomen: Present: normal appearance, soft Uterus: Present: normal, firm - Labs Labs: Abnormal Lab Results - Last 24 Hours (Table) 05/19/23 Range/Units 05:28 RBC 3.55 L (3.80-5.40) m/uL Hct 33.1 L (34.0-46.0) % Assessment and Plan (1) 39 weeks gestation of Current Visit: Yes Status: Resolved Code(s): Z3A.39 - 39 WEEKS GESTATION OF SNOMED Code(s): 84454909 (2) Gestational diabetes mellitus, class A2 Current Visit: Yes Status: Resolved Code(s): O24.419 - GESTATIONAL DIABETES MELLITUS IN , UNSP CONTROL SNOMED Code(s): 62194828 (3) Status post normal vaginal delivery Current Visit: Yes Status: Acute Code(s): MZK2750 - SNOMED Code(s): 863659180 Plan: 1. continue care
[2023-05-19] MEDS: ACETAMINOPHEN TAB 325 MG TAB PO PRN (20:02)
--- NOTE | 2023-05-20 05:42 | P.DS ---
Providers Date of admission: 05/17/23 15:45 Expected date of discharge: 05/20/23 Attending physician: Vanda Gurrola Primary care physician: Stated None - Discharge Diagnosis(es) (1) 39 weeks gestation of Current Visit: Yes Status: Resolved (2) Gestational diabetes mellitus, class A2 Current Visit: Yes Status: Resolved (3) Status post normal vaginal delivery Current Visit: Yes Status: Acute Hospital Course: She presented for induction of labor. She underwent a normal vaginal delivery. course has been uneventful. She denies nausea, vomiting, chest pain, shortness of breath or calf pain. Patient will be discharged home day #2 in stable condition to follow-up with me in 6 weeks. Plan - Discharge Summary New Discharge Prescriptions: New Ibuprofen [Motrin] 600 mg PO Q6HR PRN #30 tab PRN Reason: Mild Pain (Scale 1 To 3) No Action Vit No.179/Iron/Folic [ Tablet] 1 each PO DAILY Insulin Aspart [NovoLOG Flexpen] 7 - 9 units SQ DAILY Discharge Medication List Vit No.179/Iron/Folic [ Tablet] 1 each PO DAILY 12/31/22 [History] Insulin Aspart [NovoLOG Flexpen] 7 - 9 units SQ DAILY 05/05/23 [History] Ibuprofen [Motrin] 600 mg PO Q6HR PRN #30 tab 05/19/23 [Rx] Follow up Appointment(s)/Referral(s): Vanda Gurrola DO [Doctor of Osteopathic Medicine] - 6 Weeks (PO 05-24-2023 @10:00Am PP 06/25/2023 @11:15 Am) Discharge Disposition: HOME SELF-CARE
[2023-05-20] MEDS: IBUPROFEN 600 MG TAB PO PRN ×2 (08:15→13:30)
[2023-05-20] MEDS: SENNOSIDES-DOCUSATE SODIUM 1 EACH TAB PO SCH (08:15)
[2023-05-20 08:35] VITALS: BP 131/82; PULSE 91; RESP 16; TEMP 98.2
== END 2023-05-20 14:10 | disposition home or self-care (01) | DRG 560 ==
LOC: 4FBP 15:45
PROVIDERS: ADMIT Obstetrics & Gynecology; ATTEND Obstetrics & Gynecology
PROC: 10E0XZZ Delivery of Products of Conception, External Approach (ICD-10-PCS; principal; 2023-05-18)
PROC: 10907ZC Drainage of Amniotic Fluid, Therapeutic from Products of Conception, Via Natural or Artificial Opening (ICD-10-PCS; 2023-05-18)
PROC: 3E0P7VZ Introduction of Hormone into Female Reproductive, Via Natural or Artificial Opening (ICD-10-PCS; 2023-05-18)
PROC: 3E033VJ Introduction of Other Hormone into Peripheral Vein, Percutaneous Approach (ICD-10-PCS; 2023-05-18)
DX: O24.424 Gestational diabetes mellitus in childbirth, insulin controlled (principal); O69.81X0 Labor and delivery complicated by cord around neck, without compression, not applicable or unspecified; Z37.0 Single live birth; Z3A.39 39 weeks gestation of pregnancy
CPT/HCPCS: 85025; 86850; 86900; 86901

== ENCOUNTER 2024-05-10 06:38 | Outpatient (CLI) | payer OTHER ==
[2024-05-10 08:11] VITALS: BP 134/78; PULSE 109; RESP 16; TEMP 96.4
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
== END 2024-05-10 08:10 ==
LOC: FBPOP 06:38
PROVIDERS: ATTEND Obstetrics & Gynecology Obstetrics
DX: O9A.212 Injury, poisoning and certain other consequences of external causes complicating pregnancy, second trimester (principal); Z3A.21 21 weeks gestation of pregnancy; G89.11 Acute pain due to trauma; W10.9XXA Fall (on) (from) unspecified stairs and steps, initial encounter; Y92.039 Unspecified place in apartment as the place of occurrence of the external cause
CPT/HCPCS: 99213

== ENCOUNTER 2024-08-22 10:16 | Outpatient (CLI) | payer OTHER ==
[2024-08-22 11:36] VITALS: BP 114/72; PULSE 90; RESP 16; TEMP 96.6
== END 2024-08-22 10:52 ==
LOC: FBPOP 10:16
PROVIDERS: ATTEND Obstetrics & Gynecology
DX: O24.419 Gestational diabetes mellitus in pregnancy, unspecified control (principal); Z3A.00 Weeks of gestation of pregnancy not specified
CPT/HCPCS: 59025

== ENCOUNTER 2024-09-08 06:05 | Inpatient (IN) | payer OTHER ==
[2024-09-08] MEDS ORDERED: METHYLERGONOVINE 0.2 MG/ML 1 ML AMP IM PRN (06:22)
[2024-09-08] MEDS ORDERED: OXYTOCIN 10 UNIT/ML 1 ML VIAL IM PRN (06:22)
[2024-09-08] MEDS ORDERED: CARBOPROST TROMETHAMINE 250 MCG/ML 1 ML AMP IM PRN (06:22)
[2024-09-08] MEDS ORDERED: miSOPROStoL 200 MCG TAB PO PRN (06:22)
[2024-09-08] MEDS ORDERED: TRANEXAMIC 1,000 MG/100ML-NACL 1,000 MG in EMPTY BAG 1 BAG IV PRN (06:22)
[2024-09-08] MEDS ORDERED: TERBUTALINE 1 MG/ML VIAL SQ PRN (06:22)
[2024-09-08] MEDS ORDERED: miSOPROStoL 200 MCG TAB RECTAL PRN (06:22)
[2024-09-08] MEDS ORDERED: LIDOCAINE 0.5% (PF) 5 MG/ML (50 ML SDV) SQ PRN (06:22)
[2024-09-08 06:29] LABS: Glucose,Whole Blood 86 mg/dL (70-110)
[2024-09-08 06:56] LABS: Basophils % (A) 0 %; Eosinophils # (A) 0.1 k/uL (0-0.7); Eosinophils % (A) 2 %; HCT 35.4 % (34.0-46.0); HGB 11.5 gm/dL (11.4-16.0); Lymphocytes # (A) 1.7 k/uL (1.0-4.8); Lymphocytes % (A) 23 %; MCH 30.6 pg (25.0-35.0); MCHC 32.5 g/dL (31.0-37.0); MCV 94.2 fL (80.0-100.0); Mean Platelet Volume 8.9; Monocytes # (A) 0.4 k/uL (0-1.0); Monocytes % (A) 5 %; Neutrophils # (A) 5.1 k/uL (1.3-7.7); Neutrophils % (A) 67 %; Platelet Count 199 k/uL (150-450); RBC 3.76 m/uL (3.80-5.40); WBC 7.6 k/uL (3.8-10.6)
--- NOTE | 2024-09-08 07:36 | P.HPOB ---
History of Present Illness H&P Date: 09/08/24 Chief Complaint: induction of labor 34 year old presents at 39 weeks for induction of labor. She is gestational diabetic and is on insulin. SVE 1-2//-2, she is not milton. heart tones category 1. Blood sugar this morning is 86 Review of Systems All systems: negative Constitutional: Denies chills, Denies fever Eyes: denies blurred vision, denies pain Ears, nose, mouth and throat: Denies headache, Denies sore throat Cardiovascular: Denies chest pain, Denies shortness of breath Respiratory: Denies cough Gastrointestinal: Denies abdominal pain, Denies diarrhea, Denies nausea, Denies vomiting Genitourinary: Denies dysuria, Denies hematuria Musculoskeletal: Denies myalgias Integumentary: Denies pruritus, Denies rash Neurological: Denies numbness, Denies weakness Psychiatric: Denies anxiety, Denies depression Endocrine: Denies fatigue, Denies weight change Past Medical History Past Medical History: No Reported History Additional Past Medical History / Comment(s): Gestational diabetes on insulin, history of migraines History of Any Multi-Drug Resistant Organisms: None Reported Past Surgical History: Adenoidectomy, Ear Surgery Past Anesthesia/Blood Transfusion Reactions: No Reported Reaction Past Psychological History: No Psychological Hx Reported Smoking Status: Never smoker Past Alcohol Use History: None Reported Past Drug Use History: None Reported - Past Family History Father Family Medical History: No Reported History Mother Family Medical History: Asthma, Thyroid Disorder Medications and Allergies Home Medications Medication Instructions Recorded Confirmed Type Vit No.179/Iron/Folic 1 each PO DAILY 12/31/22 09/08/24 History [ Tablet] Insulin Aspart [NovoLOG Flexpen] 35 units SQ HS 08/22/24 09/08/24 History Insulin Glargine,Hum.rec.anlog 5 units SQ DAILY 09/08/24 09/08/24 History [Lantus Solostar Pen] Allergies Allergy/AdvReac Type Severity Reaction Status Date / Time No Known Allergies Allergy Verified 08/22/24 11:11 Exam Osteopathic Statement: *. No significant issues noted on an osteopathic str uctural exam other than those noted in the History and Physical/Consult. Vital Signs Temp Pulse Resp BP Pulse Ox 09/08/24 06:19 96.6 F L 75 18 127/71 98 Intake and Output 09/07/24 09/08/24 09/08/24 22:59 06:59 14:59 Other: Weight 76.204 kg Heart: Regular rate and rhythm Lungs: Clear to auscultation bilaterally Abdomen: Soft, nontender Extremities: Negative Homans sign Results Result Diagrams: 09/08/24 06:39 Abnormal Lab Results - Last 24 Hours (Table) 09/08/24 Range/Units 06:39 RBC 3.76 L (3.80-5.40) m/uL Assessment and Plan (1) 39 weeks gestation of Current Visit: No Status: Acute Code(s): Z3A.39 - 39 WEEKS GESTATION OF SNOMED Code(s): 70186571 (2) Gestational diabetes mellitus, class A2 Current Visit: No Status: Acute Code(s): O24.419 - GESTATIONAL DIABETES MELLITUS IN , UNSP CONTROL SNOMED Code(s): 56554253 (3) Encounter for induction of labor Current Visit: Yes Status: Acute Code(s): Z34.90 - ENCNTR FOR SUPRVSN OF NORMAL , UNSP, UNSP TRIMESTER SNOMED Code(s): 345227747 Plan: 1. Induction of labor with amniotomy and Pitocin 2. Monitor blood sugars every 2 hours until she is in active labor and then every hour. 3. Continuous monitoring
[2024-09-08] MEDS: LACTATED RINGERS 1,000 ML IV SCH (07:49)
[2024-09-08] MEDS: OXYTOCIN 30 UNITS/500 ML NS 30 UNIT in SALINE 1 500ML.BAG IV SCH (07:49)
[2024-09-08 08:35] LABS: Glucose,Whole Blood 86 mg/dL (70-110)
[2024-09-08 10:32] LABS: Glucose,Whole Blood 76 mg/dL (70-110)
[2024-09-08] MEDS ORDERED: ROPIVACAINE 5 MG/ML 30 ML VIAL ONE (11:34)
[2024-09-08] MEDS ORDERED: fentaNYL (PF) 50 MCG/ML 5 ML AMP ONE (11:34)
[2024-09-08] MEDS ORDERED: SODIUM CHLORIDE 0.9% 250 ML BAG ONE (11:34)
[2024-09-08 12:12] LABS: Glucose,Whole Blood 78 mg/dL (70-110)
[2024-09-08] MEDS ORDERED: SIMETHICONE 80 MG CHEWABLE PO PRN (15:10)
[2024-09-08] MEDS ORDERED: BENZOCAINE/MENTHOL SPRAY 1 GM/SPRAY AEROSOL TOPICAL PRN (15:10)
[2024-09-08] MEDS ORDERED: ZOLPIDEM 5 MG TAB PO PRN (15:10)
[2024-09-08] MEDS ORDERED: diphenhydrAMINE 25 MG CAP PO PRN (15:10)
[2024-09-08] MEDS ORDERED: HYDROCORTISONE 2.5% RECTAL CREAM 30 GM TUBE RECTAL PRN (15:10)
[2024-09-08] MEDS ORDERED: LANOLIN CREAM 1 GM TUBE TOPICAL PRN (15:10)
[2024-09-08] MEDS ORDERED: diphenhydrAMINE 50 MG CAP PO PRN (15:10)
[2024-09-08] MEDS: IBUPROFEN 800 MG TAB PO SCH (15:24)
[2024-09-08] MEDS: ACETAMINOPHEN TAB 500 MG TAB PO SCH (19:59)
[2024-09-08] MEDS: SENNOSIDES-DOCUSATE SODIUM 1 EACH TAB PO SCH (19:59)
[2024-09-09 06:17] LABS: Basophils # (A) 0.04 10*3/uL (0.00-0.10); Basophils % (A) 0.4 %; Eosinophils # (A) 0.17 10*3/uL (0.04-0.35); Eosinophils % (A) 1.6 %; HCT 30.2 % (37.2-46.3); HGB 10.5 g/dL (12.0-15.0); Lymphocytes # (A) 1.92 10*3/uL (0.90-5.00); Lymphocytes % (A) 18.6 %; MCH 32.7 pg (27.0-32.0); MCHC 34.8 g/dL (32.0-37.0); MCV 94.1 fL (80.0-97.0); Mean Platelet Volume 10.8 fL (9.5-12.2); Monocytes % (A) 8.7 %; Neutrophils # (A) 7.23 10*3/uL (1.80-7.70); Platelet Count 160 10*3/uL (140-440); RBC 3.21 10*6/uL (4.10-5.20); RDW 13.4 % (11.5-14.5); WBC 10.33 10*3/uL (4.50-10.00)
--- NOTE | 2024-09-09 17:08 | P.PROBDLV ---
Vaginal Delivery Note - . Vaginal Delivery Note: Date of Service 09/08/2024 34 year old presents at 39 weeks for induction of labor. She is gestational diabetic and is on insulin. SVE 1-2//-2, she is not milton. heart tones category 1. Blood sugar this morning is 86 Pitocin was started amniotomy performed at 7:22 AM and clear fluid noted. When patient was about 3 cm she was uncomfortable and got an epidural. Cervix was completely dilated at 1432. She pushed, delivered a viable female over intact perineum under epidural anesthesia at 1437. Head delivered OA, anterior shoulder delivered gentle downward guidance pelvic posterior shoulder and rest of body. Nose and mouth bulb suction, clamped cut, placed on mother's abdomen. Apgars 9, 9, weight 5 pounds 15 ounces. Placenta delivered spontaneously, intact with three- vessel cord at 1441. Vagina, cervix, perineum were inspected. No lacerations noted. Estimated blood loss 150 mL. Mother and baby in stable condition.
--- NOTE | 2024-09-09 17:09 | P.PNOBGVD ---
Subjective - Subjective Principal diagnosis: S/P NVD PPD #1 Interval history: Patient seen and examined. Denies nausea, vomiting, chest pain, shortness of breath or calf pain. Patient reports: Reports appetite normal, Reports voiding normally, Reports pain well controlled, Reports ambulating normally : doing well Objective - Latest Vital Signs Latest vital signs: Vital Signs Temp Pulse Resp BP Pulse Ox 09/09/24 16:00 98.4 F 80 16 126/80 96 09/09/24 12:00 98.2 F 83 20 119/74 98 09/09/24 08:00 98.3 F 81 19 109/61 98 09/09/24 00:15 97.8 F 86 17 120/71 97 09/08/24 20:05 98.6 F 91 15 129/78 96 Intake and Output 09/09/24 09/09/24 09/09/24 06:59 14:59 22:59 Other: # Voids 2 2 2 - Exam Lungs: bilateral: normal Chest: Normal S1, Normal S2 Extremities: Present: normal Abdomen: Present: normal appearance, soft Uterus: Present: normal, firm - Labs Labs: Abnormal Lab Results - Last 24 Hours (Table) 09/09/24 Range/Units 05:50 WBC 10.33 H (4.50-10.00) 10*3/uL RBC 3.21 L (4.10-5.20) 10*6/uL Hgb 10.5 L (12.0-15.0) g/dL Hct 30.2 L (37.2-46.3) % MCH 32.7 H (27.0-32.0) pg Immature Gran # 0.07 H (0.00-0.04) 10*3/uL Assessment and Plan (1) 39 weeks gestation of Current Visit: No Status: Resolved Code(s): Z3A.39 - 39 WEEKS GESTATION OF SNOMED Code(s): 29426619 (2) Gestational diabetes mellitus, class A2 Current Visit: No Status: Resolved Code(s): O24.419 - GESTATIONAL DIABETES MELLITUS IN , UNSP CONTROL SNOMED Code(s): 92508027 (3) Encounter for induction of labor Current Visit: Yes Status: Resolved Code(s): Z34.90 - ENCNTR FOR SUPRVSN OF NORMAL , UNSP, UNSP TRIMESTER SNOMED Code(s): 986086835 (4) Status post normal vaginal delivery Current Visit: No Status: Acute Code(s): DZF9331 - SNOMED Code(s): 13575 8006 Plan: 1. cont pp care
--- NOTE | 2024-09-10 08:26 | P.DS ---
Providers Date of admission: 09/08/24 06:05 Expected date of discharge: 09/10/24 Attending physician: Vanda Gurrola Primary care physician: Stated None - Discharge Diagnosis(es) (1) 39 weeks gestation of Current Visit: No Status: Resolved (2) Gestational diabetes mellitus, class A2 Current Visit: No Status: Resolved (3) Encounter for induction of labor Current Visit: Yes Status: Resolved (4) Status post normal vaginal delivery Current Visit: No Status: Acute Hospital Course: Patient presented for induction of labor. She underwent a normal vaginal delivery. course has been uneventful. She denies nausea, vomiting, chest pain, shortness of breath or calf pain. Patient will be discharged home day #2 in stable condition to follow-up with me in 6 weeks. Plan - Discharge Summary Discharge Rx Participant: Yes New Discharge Prescriptions: New Ibuprofen [Motrin] 800 mg PO Q8HR #30 tab No Action Vit No.179/Iron/Folic [ Tablet] 1 each PO DAILY Insulin Aspart [NovoLOG Flexpen] 35 units SQ HS Insulin Glargine,Hum.rec.anlog [Lantus Solostar Pen] 5 units SQ DAILY Discharge Medication List Vit No.179/Iron/Folic [ Tablet] 1 each PO DAILY 12/31/22 [ History] Insulin Aspart [NovoLOG Flexpen] 35 units SQ HS 08/22/24 [History] Insulin Glargine,Hum.rec.anlog [Lantus Solostar Pen] 5 units SQ DAILY 09/08/24 [History] Ibuprofen [Motrin] 800 mg PO Q8HR #30 tab 09/10/24 [Rx] Follow up Appointment(s)/Referral(s): Vanda Gurrola DO [Doctor of Osteopathic Medicine] - 10/28/24 11:30 am Discharge Disposition: HOME SELF-CARE
[2024-09-10 16:00] VITALS: BP 134/66; PULSE 67; RESP 17; TEMP 98.8
== END 2024-09-10 18:15 | disposition home or self-care (01) | DRG 560 ==
LOC: 4FBP 06:05
PROVIDERS: ADMIT Obstetrics & Gynecology; ATTEND Obstetrics & Gynecology
PROC: 3E033VJ Introduction of Other Hormone into Peripheral Vein, Percutaneous Approach (ICD-10-PCS; principal; 2024-09-08)
PROC: 10907ZC Drainage of Amniotic Fluid, Therapeutic from Products of Conception, Via Natural or Artificial Opening (ICD-10-PCS; principal; 2024-09-08)
PROC: 10E0XZZ Delivery of Products of Conception, External Approach (ICD-10-PCS; principal; 2024-09-08)
DX: O24.424 Gestational diabetes mellitus in childbirth, insulin controlled (principal); Z3A.39 39 weeks gestation of pregnancy; Z37.0 Single live birth
CPT/HCPCS: 85025; 86850; 86900; 86901

== ENCOUNTER 2024-09-16 15:08 | Emergency (ER) | payer OTHER ==
[2024-09-16 15:13] VITALS: BP 170/118; PULSE 54; RESP 20; TEMP 98.2
[2024-09-16 17:45] LABS: Basophils # (A) 0.05 10*3/uL (0.00-0.10); Basophils % (A) 0.6 %; Eosinophils # (A) 0.25 10*3/uL (0.04-0.35); Eosinophils % (A) 2.8 %; HCT 36.7 % (37.2-46.3); HGB 12.5 g/dL (12.0-15.0); Lymphocytes # (A) 1.99 10*3/uL (0.90-5.00); Lymphocytes % (A) 22.4 %; MCH 31.7 pg (27.0-32.0); MCHC 34.1 g/dL (32.0-37.0); MCV 93.1 fL (80.0-97.0); Mean Platelet Volume 10.1 fL (9.5-12.2); Monocytes # (A) 0.67 10*3/uL (0.20-1.00); Monocytes % (A) 7.5 %; Neutrophils # (A) 5.85 10*3/uL (1.80-7.70); Neutrophils % (A) 65.7 %; Platelet Count 245 10*3/uL (140-440); RBC 3.94 10*6/uL (4.10-5.20); RDW 12.7 % (11.5-14.5)
[2024-09-16] MEDS: KETOROLAC 15 MG/ML 1 ML VIAL IM STA (18:10)
[2024-09-16 18:12] LABS: ALT 30 U/L (4-34); AST 17 U/L (14-36); African American GFR (CKD) 81 (>60 ml/min/1.73 sqM); Albumin 3.3 g/dL (3.5-5.0); Alkaline Phosphatase 122 U/L (38-126); Anion Gap 7 mmol/L; Blood Urea Nitrogen 24 mg/dL (7-17); Carbon Dioxide 21 mmol/L (22-30); Chloride 107 mmol/L (98-107); Glucose 114 mg/dL (74-99); Lipase 229 U/L (23-300); Non-African American GFR(CKD) 70 (>60 ml/min/1.73 sqM); Potassium 4.5 mmol/L (3.5-5.1); Sodium 135 mmol/L (137-145); Total Bilirubin 0.3 mg/dL (0.2-1.3); Total Protein 6.4 g/dL (6.3-8.2)
--- NOTE | 2024-09-16 18:16 | ED ---
General Adult HPI - General Chief complaint: Abdominal Pain Stated complaint: Back Pain Time Seen by Provider: 09/16/24 15:26 Source: patient Mode of arrival: ambulatory Limitations: no limitations - History of Present Illness Initial comments: Patient is a 34-year-old female 8 days presenting as a transfer from [facility] for flank pain. Patient states she had presented there earlier today due to mastitis and had also requested Flomax because she felt like she had a kidney stone. She has been taking Motrin 800s that were prescribed at discharge from her recent delivery and she states that her pain is controlled. While at [place], she was found to have a 0.5 cm kidney stone with moderate hydronephrosis on CT scan, signs of UTI on urinalysis. She was given IV Rocephin and fluids and transferred here for urology consultation and possible admission. The patient states that her pain is controlled. She denies dysuria or urinary frequency. She denies increased vaginal discharge or abnormal vaginal bleeding. She denies abdominal pain, fevers, chills, nausea, vomiting, diarrhea , chest pain, shortness of breath or systemic symptoms. She states that she feels fine and would like to be discharged home so that she can be at home with her new baby. - Related Data Home Medications Medication Instructions Recorded Confirmed Vit No.179/Iron/Folic 1 each PO DAILY 12/31/22 09/08/24 [ Tablet] Insulin Aspart [NovoLOG Flexpen] 35 units SQ HS 08/22/24 09/08/24 Insulin Glargine,Hum.rec.anlog 5 units SQ DAILY 09/08/24 09/08/24 [Lantus Solostar Pen] Previous Rx's Medication Instructions Recorded Ibuprofen [Motrin] 800 mg PO Q8HR #30 tab 09/10/24 Cephalexin [Keflex] 500 mg PO Q6HR 14 Days #56 cap 09/16/24 Allergies Allergy/AdvReac Type Severity Reaction Status Date / Time No Known Allergies Allergy Verified 09/16/24 15:13 Review of Systems ROS Statement: Those systems with pertinent positive or pertinent negative responses have been documented in the HPI. ROS Other: All systems not noted in ROS Statement are negative. Past Medical History Past Medical History: No Reported History Additional Past Medical History / Comment(s): Gestational diabetes on insulin, history of migraines History of Any Multi-Drug Resistant Organisms: None Reported Past Surgical History: Adenoidectomy, Ear Surgery Past Anesthesia/Blood Transfusion Reactions: No Reported Reaction Past Psychological History: No Psychological Hx Reported Smoking Status: Never smoker Past Alcohol Use History: None Reported Past Drug Use History: None Reported - Past Family History Father Family Medical History: No Reported History Mother Family Medical History: Asthma, Thyroid Disorder General Exam - General Exam Comments Initial Comments: PE: CONSTITUTIONAL: No apparent distress, well appearing SKIN: Warm, dry, no jaundice, hives or petechiae EYES: Pupils are equally round, extraocular movements intact without nystagmus, clear conjunctiva, non-icteric sclera HENT: Normocephalic, atraumatic, moist mucus membranes, oropharynx clear without exudates NECK: , Full range of motion, normal appearance PULMONARY: Clear to auscultation without wheezes, rhonchi, or rales, normal excursion, no accessory muscle use and no stridor CARDIOVASCULAR: Regular rate, rhythm, normal S1 and S2. No appreciated murmurs, rubs or gallops. Strong radial pulses with intact distal perfusion. No lower extremity edema GASTROINTESTINAL: Soft, active bowel sounds throughout, non-tender, non- distended, no palpable masses, no rebound or guarding. No hepatosplenomegaly, left CVA tenderness GENITOURINARY: MUSCULOSKELETAL: Extremities have no gross deformity, no edema, redness, or swelling NEUROLOGIC:_a/o x 3, GCS 15, normal mentation and speech. Moves all extremities x 4 without motor or sensory deficit PSYCHIATRIC:_normal mood and affect, thought process is clear and linear Limitations: no limitations Course Vital Signs 09/16/24 15:11 Temperature 98.2 F Pulse Rate 54 L Respiratory 20 Rate Blood Pressure 170/118 O2 Sat by Pulse 98 Oximetry Medical Decision Making - Medical Decision Making Was pt. sent in by a medical professional or institution (, PA, OUTSOLE LEVELER, urgent care, hospital, or long-term...) When possible be specific @ -[No]Patient was sent from [facility], possible obstructive stone Did you speak to anyone other than the patient for history (EMS, parent, family, police, friend...)? What history was obtained from this source @ -[No] Did you review nursing and triage notes (agree or disagree)? Why? @ -[I reviewed nursing and triage notes] Were old charts reviewed (outside hosp., previous admission, EMS record, old EKG, old radiological studies, urgent care reports/EKG's, long-term records)? Report findings @ -[Medical records reviewed] reviewed paperwork sent with patient from [facility], showed leuk esterase positive leuk trase 2+, occasional bacteria, 0-2 squames cells, negative nitrites, CT scan showed 0.5 cm stone in left ureter with moderate hydronephrosis, kidney function was within normal limits, she was given 1 g of IV Rocephin and a liter of normal saline Differential Diagnosis (chest pain, altered mental status, abdominal pain women, abdominal pain men, vaginal bleeding, weakness, fever, dyspnea, syncope, headache, dizziness, GI bleed, back pain, seizure, CVA, palpatations, mental health, musculoskeletal)? @ -Differential Back Pain: Strain, zoster, cauda equina syndrome, epidural abscess, vertebral osteomyelitis, discitis, fracture, subluxation, disc herniation, DJD, spinal stenosis, dissection, AAA, pancreatitis, peptic ulcer disease, pyelonephritis, kidney stone, this is not meant to be an all-inclusive list. Differential diagnosis remains broad however, considerations include ureterolithiasis, pyelonephritis, acute cystitis, perinephric abscess, this is not all-inclusive list. Of note CT scan performed at transferring facility did not show signs of perinephric abscess or fat stranding around the affected kidney and confirmed ureterolithiasis with urinalysis confirming urinary tract infection EKG interpreted by me (3pts min.). @ -[As above] X-rays interpreted by me (1pt min.). @ -[None done] CT interpreted by me (1pt min.). @ -[None done] U/S interpreted by me (1pt. min.). @ -[None done] What testing was considered but not performed or refused? (CT, X-rays, U/S, labs)? Why? @ -[None] What meds were considered but not given or refused? Why? @ -[None] Did you discuss the management of the patient with other professionals (professionals i.e. , PA, OUTSOLE LEVELER, lab, RT, psych nurse, social media project manager, diesel powerplant mechanic helper, teacher, patrol officer, corrections caseworker)? Give summary @ -Case was discussed with urology, Dr. Estrada, appreciate recommendations. I d iscussed with him patient's CT findings, labs thus far presenting signs, symptoms and exam in addition to patient's desire to be discharged home. Dr. Hurst agrees it is reasonable for patient to be discharged for outpatient follow-up, recommends dose of Rocephin today, which patient has already received Was smoking cessation discussed for >3mins.? @ -[No] Was critical care preformed (if so, how long)? @ -[No] Were there social determinants of health that impacted care today? How? (Homelessness, low income, unemployed, alcoholism, drug addiction, transportation, low edu. Level, literacy, decrease access to med. care, custodial, rehab)? @ -[No] Was there de-escalation of care discussed even if they declined (Discuss DNR or withdrawal of care, Hospice)? @ -[No] What co-morbidities impacted this encounter? (DM, HTN, Smoking, COPD, CAD, Cancer, CVA, ARF, Chemo, Hep., AIDS, mental health diagnosis, sleep apnea, morbid obesity)? @ -[None] Was patient admitted / discharged? Hospital course, mention meds given and route, prescriptions, significant lab abnormalities, going to OR and other pertinent info. @Discharge-this is a pleasant 34-year-old female presenting as a transfer from [facility] out of concern that she may potentially need to be admitted due to infected obstructed kidney stone. Patient is afebrile here and well appearing. Reviewed paperwork sent with patient from transferring facility, see note above. Will obtain repeat labs, UA. Case discussed with Dr. Estrada, please see above. Pt would prefer discharge home and given reassuring labs, patient is well appearing, does not meet sirs criteria, will discharge home with prescription for cefpodoxime. Discussed with patient the importance of following up with urology, Dr. Estrada, by Sunday as well as strict ED return precautions. Undiagnosed new problem with uncertain prognosis? @ -[No] Drug Therapy requiring intensive monitoring for toxicity (Heparin, Nitro, Insulin, Cardizem)? @ -[No] Were any procedures done? @ -[No] Diagnosis/symptom? UTI, ureterolithiasis Acute, or Chronic, or Acute on Chronic? @ -acute Uncomplicated (without systemic symptoms) or Complicated (systemic symptoms)? @ -[default] Side effects of treatment? @ -[No] Exacerbation, Progression, or Severe Exacerbation? @ -[No] Poses a threat to life or bodily function? How? (Chest pain, [place], [place], pneumonia, PE, COPD, DKA, ARF, appy, cholecystitis, CVA, Diverticulitis, Homicidal, Suicidal, threat to staff... and all critical care pts) @ -[No] - Lab Data Result diagrams: 09/16/24 17:41 09/16/24 17:41 Lab Results 09/16/24 09/16/24 Range/Units 17:41 17:41 WBC 8.90 (4.50-10.00) 10*3/uL RBC 3.94 L (4.10-5.20) 10*6/uL Hgb 12.5 (12.0-15.0) g/dL Hct 36.7 L (37.2-46.3) % MCV 93.1 (80.0-97.0) fL MCH 31.7 (27.0-32.0) pg MCHC 34.1 (32.0-37.0) g/dL Plt Count 245 (140-440) 10*3/uL MPV 10.1 (9.5-12.2) fL Immature Gran % (Auto) 1.0 % Neutrophils % 65.7 % Lymphocytes % 22.4 % Monocytes % 7.5 % Eosinophils % 2.8 % Basophils % 0.6 % Immature Gran # 0.09 H (0.00-0.04) 10*3/uL Neutrophils # 5.85 (1.80-7.70) 10*3/uL Lymphocytes # 1.99 (0.90-5.00) 10*3/uL Monocytes # 0.67 (0.20-1.00) 10*3/uL Eosinophils # 0.25 (0.04-0.35) 10*3/uL Basophils # 0.05 (0.00-0.10) 10*3/uL Sodium 135 L (137-145) mmol/L Potassium 4.5 (3.5-5.1) mmol/L Chloride 107 (98-107) mmol/L Carbon Dioxide 21 L (22-30) mmol/L Anion Gap 7 mmol/L BUN 24 H (7-17) mg/dL Creatinine 1.05 H (0.52-1.04) mg/dL Est GFR (CKD-EPI)AfAm 81 (>60 ml/min/1.73 sqM) Est GFR (CKD-EPI)NonAf 70 (>60 ml/min/1.73 sqM) Glucose 114 H (74-99) mg/dL Calcium 9.0 (8.4-10.2) mg/dL Total Bilirubin 0.3 (0.2-1.3) mg/dL AST 17 (14-36) U/L ALT 30 (4-34) U/L Alkaline Phosphatase 122 (38-126) U/L Total Protein 6.4 (6.3-8.2) g/dL Albumin 3.3 L (3.5-5.0) g/dL Lipase 229 (23-300) U/L Disposition Clinical Impression: Ureterolithiasis, Urinary tract infection Disposition: HOME SELF-CARE Condition: Stable Instructions (If sedation given, give patient instructions): Ureteral Stones (ED) Additional Instructions: Every disease is a spectrum and a small chance still exists that a serious condition could develop, for this reason, please monitor yourself closely for new, changing or worsening symptoms, symptoms that persist beyond [48 hours], uncontrolled pain [fever], inability to tolerate/keep down fluids or your medications, inability to follow up with outpatient providers as instructed and should you experience these symptoms or should you have any further concerns for your wellbeing please return to the ED or call 911 immediately. Your sodium level was mildly low today, please increase your salt intake over the next 24 hours. Your pain can be treated with ibuprofen and acetaminophen. You can take up to 400-600 mg of ibuprofen (Advil, Motrin) 3 times daily (every 8 hours) but can also use lower doses if this relieves your pain. Some people prefer naproxen (Aleve, Naprosyn) which can be taken in doses of 500 mg up to twice a day. Do not take both of these medicines together, and do not combine either with ketorolac (Toradol), meloxicam (Mobic), or indomethacin (Tivorbex). Some people can develop stomach discomfort with higher doses of either ibuprofen or naproxen, if this develops decrease your dose or stop taking it. If you need to take this dose daily for more than a week, please schedule an appointment for re-evaluation with your PCP. Please take these medications with food. You can take up to 1000 mg of acetaminophen (Tylenol) every 6 hours. Be careful as this is included in some medicines like Nyquil, [place], Percocet, Vicodin, STANBACK, Goody's Powders, and Excedrin. You can also use lidocaine patches for topical pain. You can purchase 4% patches over the counter at most drug stores. These can be helpful for pain from your muscles or bones. Please drink plenty of fluids. Please follow-up with Dr. Hurst, urology, by Sunday, for reassessment. PLEASE call your primary care physician as soon as possible to arrange / discuss plan for followup appointment. Appointment in the next 1-3 days is strongly encouraged if possible. PLEASE let us know here before you leave if there is anything further we can do to be of any assistance. Take care and feel Better! Prescriptions: Cephalexin [Keflex] 500 mg PO Q6HR 14 Days #56 cap Is patient prescribed a controlled substance at d/c from ED?: No When asked, does pt state using other controlled substances?: No Referrals: Vijay Barker MD [Primary Care Provider] - 1-2 days Giovani Estrada MD [STAFF PHYSICIAN] - 1-2 days
== END 2024-09-16 19:03 | disposition home or self-care (01) ==
LOC: EC 15:08
DX: N20.1 Calculus of ureter (principal); N39.0 Urinary tract infection, site not specified
CPT/HCPCS: 36415; 80053; 83690; 85025; 99284; 96372; J1885